=== PATIENT | male | born 1985 | race Caucasian/White ===

== ENCOUNTER 2023-03-27 23:26 | Emergency (ER) | payer OTHER, SELFPAY ==
--- NOTE | ~2023-03-27 | XR_ITS ---
XR chest 1V portable 03/28/2023 00:57 Indication: Cough and syncope. Procedure: AP portable chest Comparison: No prior studies for comparison. Findings: Heart size normal. No focal air space disease, pulmonary edema, pleural effusion or suspect ed pneumothorax. Mildly elevated right diaphragm. Impression: 1: No acute cardiopulmonary disease. Reviewed, dictated and finalized at location A. [facility] Impression: 1: No acute cardiopulmonary disease.
[2023-03-27 23:31] VITALS: BP 168/84; PULSE 115; RESP 19; TEMP 36.5; O2SAT 97
[2023-03-27 23:58] VITALS: PULSE 99
--- NOTE | 2023-03-28 00:17 | ECG_ITS ---
Measurements Intervals [place] Rate: 97 P: 9 LA: 156 QRS: 40 QRSD: 99 T: 35 QT: 340 QTc: 432 Interpretive Statements SINUS RHYTHM DELAYED PRECORDIAL R/S TRANSITION BORDERLINE ECG NO PREVIOUS ECG AVAILABLE FOR COMPARISON Electronically Signed On 03-28-2023 8:10:33 [employer]ER[employer] DIRECTOR/EMBALMER by Moses Grider D.O.
--- NOTE | 2023-03-28 00:17 | ED.GENADULT ---
HPI - General Adult General Chief complaint: Unspecified Stated complaint: unresponsive episode Time Seen by Provider: 03/28/23 00:04 Source: patient Mode of arrival: ambulatory Limitations: no limitations History of Present Illness HPI narrative: this is a 37-year-old male who presents to the ED with chief complaint of unresponsive episode that occurred at home today. Patient is here with the at the with supplementing history. they were with their friends wai playing games in the basement. He rhythm remembers the an episode where he laughed and cough to the same time and cannot stop coughing. he reports then feeling a little lightheaded and confirms that he syncopized. She states he was out for 5-10 seconds. states he came to almost immediate and has been acting normally ever since. Patient states that he is anxious about being here in the ER but otherwise feels asymptomatic at this time. Denies any cuts, bruises or head injury. states he stayed in his chair when this happened. Denies numbness, weakness, speech change, vision change, preceding chest pain or shortness of breath. Related Data Allergies Allergy/AdvReac Type Severity Reaction Status Date / Time No Known Allergies Allergy Verified 03/12/23 09:32 [facility] Past Medical History Medical History Essential hypertension Gastroesophageal reflux Hypertriglyceridemia Obesity Obstructive sleep apnea syndrome Vitamin D deficiency Surgical History Surgical History History of placement of ear tubes Family History Family History Grandparent Diabetes mellitus Family history of arthritis Family history of kidney disease Mother Patient's mother is in good health Father Patient's father is in good health Social History Social History Smoking status: Never smoker Second hand tobacco smoke exposure: No Alcohol intake: current Alcohol use details: SOCIAL Substance use: never Substance use type: does not use Lack of Transportation: No Lack of Food: Never True Current Housing: I Have Housing Concerned About Future Housing: No Difficulty Paying Gas/Electric Bills: No Difficulty Paying for Meds: No Currently Unemployed: No Difficulty w/ Childcare or Family Care: No Living arrangements: with family Occupation/Education: occupation Gender identity (if verbalized by the patient): Male Sexual Orientation (if Verbalized by the Patient): Straight or Heterosexual Spiritual care concerns: No Agree to blood products: Yes Course Vital Signs Vital signs: Vital Signs Temperature 97.7 F 03/27/23 23:31 Pulse Rate 115 H 03/27/23 23:31 Respiratory Rate 19 03/27/23 23:31 Blood Pressure 168/84 H 03/27/23 23:31 Pulse Oximetry 97 03/27/23 23:31 Oxygen Delivery Room Air 03/27/23 23:31 Temperature 97.7 F 03/27/23 23:31 Pulse Rate 99 03/27/23 23:58 Respiratory Rate 19 03/27/23 23:31 Blood Pressure 168/84 H 03/27/23 23:31 Pulse Oximetry 97 03/27/23 23:31 Oxygen Delivery Room Air 03/27/23 23:31 Medical Decision Making MDM Narrative Medical decision making narrative: This is a 37-year-old male presenting for pre syncopal episode during a fit of coughing today. Vitals initially show elevated heart rate and blood pressure. He is anxious about being here. Family confirms that he had a brief 5-10 second episode of syncope when the middle of a coughing fit. exam is fully intact. Neurologic exam normal. No evidence of any seizure today. Likely vasovagal event with coughing. The EKG shows normal sinus rhythm. Chest x-ray unremarkable. Pt will be discharged in stable condition. Return precautions given and s
[2023-03-28 00:54] VITALS: O2SAT 95
[2023-03-28 01:00] VITALS: O2SAT 95
[2023-03-28 01:02] VITALS: BP 150/89; O2SAT 96
[2023-03-28 01:15] VITALS: O2SAT 94
[2023-03-28 01:22] VITALS: BP 150/89; PULSE 93; RESP 19; O2SAT 95
== END 2023-03-28 01:23 | disposition home or self-care (01) ==
PROVIDERS: Emergency Provider Physician Assistant; PCP Family Medicine
DX: R55 Syncope and collapse (principal); R05.9 Cough, unspecified; I10 Essential (primary) hypertension; E55.9 Vitamin D deficiency, unspecified; E78.1 Pure hyperglyceridemia; K21.9 Gastro-esophageal reflux disease without esophagitis; G47.33 Obstructive sleep apnea (adult) (pediatric); R94.31 Abnormal electrocardiogram [ECG] [EKG]
CPT/HCPCS: 71045; 93005; 99283

== ENCOUNTER 2023-10-16 07:20 | Emergency (ER) | payer OTHER, SELFPAY ==
--- NOTE | ~2023-10-16 | CT_ITS ---
EXAMINATION: CT abdomen pelvis wo con DATE: 10/16/2023 09:40 INDICATION: Left lower quadrant abdominal pain. TECHNIQUE: Computed tomography (CT) of the abdomen and pelvis was performed without intravenous contr ast. Automated exposure control and iterative reconstruction technique were employed. The dose-length product was 1716.93 mGy-cm. COMPARISON: None FINDINGS: Mild atelectasis in bilateral lower lobes, right greater than left. Heart size is normal. No pericard ial or pleural effusion. Indeterminate curvilinear density at the left hepatic lobe which could repre sent either dystrophic calcific lesion or potentially embolization of a hepatic vessel. Gallbladder, spleen, pancreas, bilateral adrenal glands and kidneys are normal. There are are numerous colonic div erticula predominantly along the descending and sigmoid colon. There is inflammatory stranding strand ing a diverticulum at the distal descending colon consistent with diverticulitis. No abscess or free intraperitoneal gas or fluid. Small bowel and appendix are normal. Bladder is normal. No pathological ly enlarged abdominal or pelvic lymphadenopathy. Mild thoracic and lumbar spondylosis. IMPRESSION: 1. Radiographically uncomplicated diverticulitis at the distal descending colon. Reviewed, dictated and finalized at location A. IMPRESSION: 1. Radiographically uncomplicated diverticulitis at the distal descending colon .
[2023-10-16 07:26] VITALS: BP 160/90; PULSE 88; RESP 17; TEMP 36.8; O2SAT 97
[2023-10-16 07:50] LABS: Alanine Aminotransferase 19 U/L (6-50); Albumin Level 4.4 g/dL (3.5-5.1); Alkaline Phosphatase 59 U/L (38-126); Anion Gap 9 mmol/L (4-12); Aspartate Amino Transferase 21 U/L (17-59); Bilirubin,Total 0.6 mg/dL (0.2-1.3); Blood Urea Nitrogen 10 mg/dL (9-20); Calcium 8.9 mg/dL (8.4-10.2); Carbon Dioxide 26 mmol/L (22-30); Chloride 104 mmol/L (98-107); Estimated CRCL calculation 160 ml/min; Estimated Glomerular Filt Rate > 60; Glucose 110 mg/dL (65-110); Lipase 49 U/L (23-300); Potassium 4.3 mmol/L (3.4-5.0); Sodium 139 mmol/L (137-145)
[2023-10-16 08:02] LABS: Basophils Absolute Auto 0.1 K/mm3 (0.0-0.1); Basophils Percent Auto 0.7 % (0.2-1.2); Eosinophils Absolute Auto 0.3 K/mm3 (0-0.3); Eosinophils Percent Auto 2.6 % (0-4.4); Hematocrit 47.7 % (42.0-52.0); Hemoglobin 15.7 g/dL (14.0-18.0); Immature Granulocyte Absolute 0.18 K/mm3 (0.00-0.031); Immature Granulocyte Percent A 1.6 % (0-0.5); Lymphocytes Absolute Auto 3.53 K/mm3 (0.9-3.2); Lymphocytes Percent Auto 30.5 % (18.3-44.2); Mean Corpuscular HGB Conc 32.9 g/dl (32-36); Mean Corpuscular Hemoglobin 30.5 pg (26-34); Mean Corpuscular Volume 92.6 fl (80-100); Mean Platelet Volume 10.3 fl (7.4-10.4); Monocytes Percent Auto 8.2 % (2.6-8.5); Neutrophils Absolute Auto 6.5 K/mm3 (1.3-6.7); Neutrophils Percent Auto 56.4 % (45.5-73.1); Platelet Count Result 270 k/mm3 (150-375); Red Blood Count 5.15 M/mm3 (4.6-6.20); Red Cell Distribution Width 12.8 % (11.5-14.5); White Blood Count 11.6 K/mm3 (4.5-10.0)
[2023-10-16 08:24] LABS: Add Urine Microscopic? YES; Appearance Urine Clear (Clear); Bacteria Urine None Seen /hpf; Bilirubin Urine Negative (Negative); Blood Urine 2+ (Negative); Color Urine Yellow (Yellow); Glucose Urine UA Negative (Negative); Ketones Urine Negative (Negative); Leukocyte Esterase Ur Negative LEU/UL (Negative); Nitrate Urine Negative (Negative); Non Pathogenic Casts 0-2; Protein Urine Trace mg/dL (Negative); Specific Grav Ur 1.026 (1.001-1.035); Squamous Epithelial Cell Urine None Seen /hpf (Few); WBC Urine 0-5 /hpf (0-3); pH Urine 5.5 (5.0-9.0)
--- NOTE | 2023-10-16 09:16 | ED.ABDPAIN ---
HPI - Abdominal Pain General Chief Complaint: Abdominal Pain Stated Complaint: abd pain Time Seen by Provider: 10/16/23 08:54 History of Present Illness HPI narrative: 38-year-old male presents to the emergency department for evaluation of 3-4 days of left lower quadrant pain. Patient denies any hematuria. Patient denies any pain with urination. Patient denies any associated nausea vomiting diarrhea. Patient denies any prior history of stones, denies any prior history of diverticulitis and has no prior history of abdominal surgeries. Related Data Allergies Allergy/AdvReac Type Severity Reaction Status Date / Time No Known Allergies Allergy Verified 08/20/23 08:54 Review of Systems Review of Systems: All systems reviewed & are unremarkable except as noted in HPI and below PMFSH Past Medical History Medical History Essential hypertension Gastroesophageal reflux Hypertriglyceridemia Obesity Obstructive sleep apnea syndrome Vitamin D deficiency Surgical History Surgical History History of placement of ear tubes Family History Family History Grandparent Diabetes mellitus Family history of arthritis Family history of kidney disease Mother Patient's mother is in good health Father Patient's father is in good health Social History Social History Smoking status: Never smoker Second hand tobacco smoke exposure: No Alcohol intake: current Alcohol use details: SOCIAL Substance use: never Substance use type: does not use Lack of Transportation: No Lack of Food: Never True Current Housing: I Have Housing Concerned About Future Housing: No Difficulty Paying Gas/Electric Bills: No Difficulty Paying for Meds: No Currently Unemployed: No Difficulty w/ Childcare or Family Care: No Living arrangements: with family Occupation/Education: occupation Gender identity (if verbalized by the patient): Male Sexual Orientation (if Verbalized by the Patient): Straight or Heterosexual Spiritual care concerns: No Agree to blood products: Yes Exam Narrative: APPEARANCE: Well appearing, no pain, no distress, well-nourished. HEAD: normocephalic, atraumatic. EYES: PERRLA/EOMI, conjunctivae clear. NOSE: Normal no drainage EARS:TMS clear with good light reflex. THROAT: Pharynx clear, no exudate. NECK: Supple. No adenopathy, no masses. RESPIRATORY: Airway patent, respirations nonlabored. Clear to auscultation bilaterally, no rales, rhonchi, wheezing. CARDIOVASCULAR: Regular rate and rhythm without murmurs rubs or gallops. ABDOMINAL: Left lower quadrant tenderness to palpation without rebound or guarding and no evidence of peritonitis MUSCULOSKELETAL: Moves all extremities. Strength/ROM intact, No edema, No calf tenderness. NEURO: Alert. Cranial nerves II through XII intact. Good gait. Good coordination SKIN: Warm, dry. Normal Color Course Course Emergency Course: Patient was treated for uncomplicated diverticulitis. Vital Signs Vital signs: Vital Signs Temperature 98.2 F 10/16/23 07:26 Pulse Rate 88 10/16/23 07:26 Respiratory Rate 17 10/16/23 07:26 Blood Pressure 160/90 H 10/16/23 07:26 Pulse Oximetry 97 10/16/23 07:26 Temperature 98.2 F 10/16/23 07:26 Pulse Rate 84 10/16/23 10:43 Respiratory Rate 16 10/16/23 10:43 Blood Pressure 138/88 10/16/23 10:43 Pulse Oximetry 98 10/16/23 10:43 MDM - Abdominal Pain MDM Narrative Medical decision making narrative: 38-year-old male present to the emergency department for evaluation for left lower quadrant pain has been worsening over the past few days. Patient is afebrile but does have a leukocytosis of 11.6 with stable hemoglobin of 15.7. Patient had no abnormalities on his CMP
[2023-10-16] MEDS: AMOXICILLIN/CLAVULANATE K 875-125 MG TAB 1 TABLET PO (10:38)
[2023-10-16 10:43] VITALS: BP 138/88; PULSE 84; RESP 16; O2SAT 98
== END 2023-10-16 10:44 | disposition home or self-care (01) ==
PROVIDERS: Emergency Provider Emergency Medicine; PCP Family Medicine
DX: K57.92 Diverticulitis of intestine, part unspecified, without perforation or abscess without bleeding (principal); I10 Essential (primary) hypertension
CPT/HCPCS: 36415; 74176; 80053; 81001; 83690; 85025; 99284; A9270